=== PATIENT | male | born 1955 | race Caucasian/White ===

== ENCOUNTER 2016-05-19 13:13 | Emergency (ER) | payer BC, OTHER ==
[~2016-05-19] VITALS: Ht 177.8 cm; Wt 84.9 kg
[~2016-05-19 13:13] MED LIST: CIPR1TAB11 PO; LISI-461 PO; MELO15TA4 PO; VARD20TA PO
[2016-05-19 13:19] VITALS: TEMP 36.5; Ht 177.8 cm; Wt 84.9 kg
[2016-05-19] MEDS ORDERED: MELO15TA4 PO (13:36)
[2016-05-19] MEDS ORDERED: GUAISYP4 PO (13:36)
[2016-05-19] MEDS ORDERED: PRED10TA PO (13:36)
[2016-05-19] MEDS ORDERED: DICL1GEL12 TOP (13:36)
[2016-05-19] MEDS ORDERED: AZIT250T PO (13:36)
[2016-05-19] MEDS ORDERED: ALBINS/ INH (13:37)
--- NOTE | 2016-05-19 14:51 | DIAGNOSTIC IMAGING REPORT ---
CHEST 2 VIEWS ROUTINE CLINICAL HISTORY: eval for pnea dyspnea COMPARISON STUDY: 10/21/2012 FINDINGS: The bones soft tissues and hemidiaphragms are normal. The cardiomediastinal silhouette is normal. The lungs are clear. The pulmonary vasculature is normal. IMPRESSION: Negative chest. Electronically signed by: Huber Knight M.D. 05/19/2016 2:50 PM Dictated Date/Time: 05/19/2016 2:49 PM
[2016-05-19] MEDS ORDERED: ALBUT/IPRATROP 3MG/0.5MG NEB 3 ML VIAL INH STA (14:55)
[2016-05-19 15:21] VITALS: O2SAT 97
[2016-05-19 15:22] VITALS: O2SAT 93
[2016-05-19 15:37] LABS: BASO % 0.3 %; BASO ABS # 0.02 K/uL (0-0.2); COMPLETE YES; EOS % 0.1 %; HEMATOCRIT 50.4 % (42-52); IG% 0.6 %; LYMPH % 14.8 %; LYMPH ABS # 1.18 K/uL (1.2-3.4); MEAN CORPUSCULAR HEMOGLOBIN 32.1 pg (25-34); MEAN CORPUSCULAR HGB CONC 35.7 g/dl (32-36); MEAN PLATELET VOLUME 9.4 fL (7.4-10.4); MONO % 9.2 %; PLATELET COUNT 334 K/uL (130-400); WHITE BLOOD COUNT 7.97 K/uL (4.8-10.8)
[2016-05-19 15:48] LABS: INR 0.9 (0.9-1.1); PROTHROMBIN TIME (PATIENT) 10.1 SECONDS (9.0-12.0)
[2016-05-19 15:54] LABS: BUN/CREATININE RATIO 14.1 (10-20); CREATININE 0.8 mg/dl (0.60-1.40); POTASSIUM 3.7 mmol/L (3.5-5.1)
[2016-05-19] MEDS ORDERED: OPTIRAY 320 IV PRN (16:30)
--- NOTE | 2016-05-19 17:00 | DIAGNOSTIC IMAGING REPORT ---
CHEST CTA for PULMONARY ARTERIES CT DOSE: 413.03 mGy.cm HISTORY: Chest pain dyspnea TECHNIQUE: Multiaxial CT images of the chest were performed following the intravenous administration of contrast to evaluate the pulmonary arteries. Maximal intensity projection images were also obtained. COMPARISON STUDY: None. FINDINGS: There is a normal caliber thoracic aorta with no evidence for dissection. There is no evidence for pulmonary embolus. No pleural effusions. No pneumothorax. The liver and spleen are unremarkable. No mediastinal or hilar lymphadenopathy. The central airways are patent. The lungs are clear. Minimal bibasilar atelectasis IMPRESSION: No evidence for pulmonary embolus. Minimal bibasilar atelectasis Electronically signed by: Huber Knight M.D. 05/19/2016 4:58 PM Dictated Date/Time: 05/19/2016 4:54 PM
[2016-05-19 17:19] VITALS: BP 139/102; PULSE 75
--- NOTE | 2016-05-19 21:31 | EMERGENCY ROOM VISIT NOTE ---
History Report prepared by Martin: Mikki Paige Under the Supervision of: Dr. Wan Zapata M.D. First contact with patient: 13:59 Chief Complaint: SHORTNESS OF BREATH Stated Complaint: BREATHING PROBLEM Nursing Triage Summary: pt to the ED with c/o "barking cough" that he felt was getting better after z pack and prednisone and then after returning to normal activities at work he felt like he was getting more SOB and has a hx of asthma and states that he feels like it is similar to that on the right upper side of his chest History of Present Illness The patient is a 60 year old male who presents to the Emergency Room with complaints of persistent shortness of breath that began yesterday. His shortness of breath is worse with exertion. The patient initially developed cold -like symptoms a couple of weeks ago including a cough and congestion. His cough was a barking cough and he would have a right sided chest pain with coughing that felt like a dagger. He also had a fever. Last week he was put on Zithromax, a Prednisone taper, and codeine cough syrup by his PCP. He was also given a steroid inhaler and albuterol nebulizer treatments. Two days ago, he finished the Z-luis f. He was starting to feel better and decided to go back to work yesterday. While at work, he did some walking and noticed that he was feeling short of breath and weak. Last night, the patient noticed some discomfort in the right side of his chest. He has a history of asthma and notes that it feels similar to asthma flare-ups. He also felt like he had to relax and concentrate in order to control his breathing. He has continued to cough and notes that it feels like the cough is coming from the right side of his chest. His cough is exacerbated with any exertion. He notes that the dagger- like chest pain that he had earlier this week has resolved. The patient called his PCP back regarding his symptoms and is now currently on Ceftin. Currently, at rest he does not feel short of breath but feels like he is on the verge of hyperventilating. His fever and congestion have resolved within the past several days. He has had some post-tussive spitting up but otherwise denies vomiting. Denies leg swelling or pain. He does not have a history of blood clots or heart attack. There is not a family history of heart disease. He is not a smoker. Source of History: patient Onset: yesterday Position: other (global - SOB) Timing: other (persistent) Modifying Factors (Worsening): exertion Associated Symptoms: + cough, + weakness Note: Other symptoms: chest discomfort on right Review of Systems See HPI for pertinent positives & negatives. A total of 10 systems reviewed and were otherwise negative. Past Medical & Surgical Medical Problems: (1) Chronic prostatitis (2) Migraine Family History Cancer Hypertension Social History Smoking Status: Never Smoker Marital Status: single Occupation Status: employed Current/Historical Medications Scheduled Azithromycin (Zithromax), 250 MG PO DAILY Diclofenac Sodium (Topical) (Voltaren 1% Top Gel), 4 GM TOP QID Lisinopril (Zestril), 10 MG PO DAILY Prednisone Tab (Prednisone), 10 MG PO UD Scheduled PRN Albuterol Sulf (Proventil 0.083% 2.5MG/3ML), 2.5 MG INH Q4 PRN for Wheezing Guaifenesin/Codeine (Robitussin-Ac Syrup), 1-2 TSP PO HS PRN for COU Meloxicam (Mobic), 15 MG PO DAILY PRN for Pain Allergies Coded Allergies: Penicillins (Verified Allergy, Unknown, UNSURE, 10/21/12) Physical Exam Vital Signs Date Time Temp Pulse Resp B/P Pulse Ox O2 Delivery O2 Flow Rate FiO2 05/19/16 17:19 75 139/102 05/19/16 16:09 82 05/19/16 15:22 72 157/105 93 Room Air 05/19/16 15:21 97 Room Air 05/19/16 13:50 143/104 05/19/16 13:19 36.5 75 16 189/113 97 Room Air Physical Exam Constitutional: Vital signs reviewed. Eyes: Pupils are equal round reactive to light. Conjunctiva are noninjected. ENT: Pharynx is clear without erythema or exudate. Mucous membranes are moist. Neck supple without meningeal signs. Respiratory: Breath sounds are equal bilaterally. Expiratory rhonchi right base. Cardiovascular: Regular rate and rhythm. No rubs or gallops. GI: Soft, nondistended and nontender. Bowel sounds are present. Musculoskeletal: No peripheral edema. No lower extremity tenderness. Integumentary: No cyanosis. Neurological: The patient is awake and alert. No focal deficits. Psychiatric: Normal affect. Medical Decision & Procedures ER Provider Diagnostic Interpretation: X-ray results as stated below per interpretation by me and the radiologist. Other radiology results as stated below per my review and the radiologist's interpretation: CHEST 2 VIEWS ROUTINE CLINICAL HISTORY: eval for pnea dyspnea COMPARISON STUDY: 10/21/2012 FINDINGS: The bones soft tissues and hemidiaphragms are normal. The cardiomediastinal silhouette is normal. The lungs are clear. The pulmonary vasculature is normal. IMPRESSION: Negative chest. Electronically signed by: Huber Knight M.D. 05/19/2016 2:50 PM Dictated Date/Time: 05/19/2016 2:49 PM CHEST CTA for PULMONARY ARTERIES CT DOSE: 413.03 mGy.cm HISTORY: Chest pain dyspnea TECHNIQUE: Multiaxial CT images of the chest were performed following the intravenous administration of contrast to evaluate the pulmonary arteries. Maximal intensity projection images were also obtained. COMPARISON STUDY: None. FINDINGS: There is a normal caliber thoracic aorta with no evidence for dissection. There is no evidence for pulmonary embolus. No pleural effusions. No pneumothorax. The liver and spleen are unremarkable. No mediastinal or hilar lymphadenopathy. The central airways are patent. The lungs are clear. Minimal bibasilar atelectasis IMPRESSION: No evidence for pulmonary embolus. Minimal bibasilar atelectasis Electronically signed by: Huber Knight M.D. 05/19/2016 4:58 PM Dictated Date/Time: 05/19/2016 4:54 PM Laboratory Results 05/19/16 15:12 Red Blood Count 5.60, Mean Corpuscular Volume 90.0, Mean Corpuscular Hemoglobin 32.1, Mean Corpuscular Hemoglobin Concent 35.7, Mean Platelet Volume 9.4, Neutrophils (%) (Auto) 75.0, Lymphocytes (%) (Auto) 14.8, Monocytes (%) (Auto) 9.2, Eosinophils (%) (Auto) 0.1, Basophils (%) (Auto) 0.3, Neutrophils # (Auto) 5.98, Lymphocytes # (Auto) 1.18, Monocytes # (Auto) 0.73, Eosinophils # (Auto) 0.01, Basophils # (Auto) 0.02 05/19/16 15:12 Test 05/19/16 15:12 05/19/16 15:30 White Blood Count 7.97 K/uL (4.8-10.8) Red Blood Count 5.60 M/uL (4.7-6.1) Hemoglobin 18.0 g/dL (14.0-18.0) Hematocrit 50.4 % (42-52) Mean Corpuscular Volume 90.0 fL (80-100) Mean Corpuscular Hemoglobin 32.1 pg (25-34) Mean Corpuscular Hemoglobin Concent 35.7 g/dl (32-36) Platelet Count 334 K/uL (130-400) Mean Platelet Volume 9.4 fL (7.4-10.4) Neutrophils (%) (Auto) 75.0 % Lymphocytes (%) (Auto) 14.8 % Monocytes (%) (Auto) 9.2 % Eosinophils (%) (Auto) 0.1 % Basophils (%) (Auto) 0.3 % Neutrophils # (Auto) 5.98 K/uL (1.4-6.5) Lymphocytes # (Auto) 1.18 K/uL (1.2-3.4) Monocytes # (Auto) 0.73 K/uL (0.11-0.59) Eosinophils # (Auto) 0.01 K/uL (0-0.5) Basophils # (Auto) 0.02 K/uL (0-0.2) RDW Standard Deviation 43.7 fL (36.4-46.3) RDW Coefficient of Variation 13.2 % (11.5-14.5) Immature Granulocyte % (Auto) 0.6 % Immature Granulocyte # (Auto) 0.05 K/uL (0.00-0.02) Prothrombin Time 10.1 SECONDS (9.0-12.0) Prothromb Time International Ratio 0.9 (0.9-1.1) Activated Partial Thromboplast Time 25.1 SECONDS (21.0-31.0) Partial Thromboplastin Ratio 1.0 Anion Gap 12.0 mmol/L (3-11) Est Creatinine Clear Calc Drug Dose 103.9 ml/min Estimated GFR () 114.1 Estimated GFR (Non- 98.5 BUN/Creatinine Ratio 14.1 (10-20) Calcium Level 9.0 mg/dl (8.5-10.1) Bedside D-Dimer > 450 ng/mlFEU (0-450) Bedside Troponin I 0.000 ng/ml (0-0.045) Laboratory results as reviewed by me. Medications Administered Medications (Trade) Dose Ordered Sig/Caroline Route Start Time Stop Time Status Last Admin Dose Admin Albuterol/ Ipratropium (Duoneb) 3 ml NOW STAT INH 05/19/16 14:55 05/19/16 14:57 DC 05/19/16 15:28 3 ML ECG Indication: chest pain (right sided) Rate (beats per minute): 75 Rhythm: normal sinus Findings: no acute ischemic change, no ectopy ED Course 1401: The patient was evaluated in room A9B. A complete history and physical exam was performed. 1455: Ordered DuoNeb 3 ml INH. 1500: I reassessed the patient and talked to him about x-ray results. 1625: I reexamined the patient. He had no wheezing or rhonchi. He says that he feels better after the nebulizer treatment and coughed quite a bit. I talked to him about the elevated d-dimer and we talked about risks of CT scanning. After discussion he agreed to the CT scan to rule out PE. 1705: I reassessed the patient and talked to him about his test results. He agreed with the plan and will be discharged home. Medical Decision This is a 60-year-old male who presents with right-sided chest pain and cold symptoms. Differential diagnosis includes bronchitis, pneumonia, pneumothorax, pulmonary embolism, cardiac. I did perform a limited focused review of portions of the patient's old chart on the electronic medical record. The patient has had no recent pertinent visits to this hospital. I did evaluate the patient as noted above. The patient has had cough and cold symptoms treated with steroids and Zithromax. He is currently on Ceftin. He is here because he had increased shortness of breath as well as right-sided chest pain which she describes as a hollow feeling. On examination he has some expiratory rhonchi at the right base. I did order and personally review the patient's chest x-ray as described above. There is no evidence of pneumonia on x-ray. IV access was established. The patient was placed on a continuous awake overnight monitor. I did order and personally review the 12-lead EKG as described above. There is no evidence of acute ischemic changes. I did order and review the patient's blood work as noted in the electronic medical record. Troponin is negative. D-dimer is elevated. I did treat patient with a DuoNeb. On reexamination the patient is feeling better and has no rhonchi or wheezing. After discussion of risks with the patient, I did order a CT of the chest to evaluate for pulmonary embolism. I did review the images myself as well as the radiology report as described above. The CAT scan was negative for pulmonary embolism or acute process. I did discuss the test results with the patient. He was advised to follow closely with his doctor. He will continue his Ceftin and was given a work note. Impression Primary Impression: Right-sided chest pain Additional Impression: Bronchitis Scribe Attestation The scribe's documentation has been prepared under my direct and personally reviewed by me in its entirety. I confirm that the note above accurately reflects all work, treatment, procedures, and medical decision making performed by me. Departure Information Dispostion Home / Self-Care Referrals Darin Love M.D. (PCP) Patient Instructions ED Chest Pain Atypical Unkn Cause, My [facility] Additional Instructions You have been examined and treated today on an emergency basis only. This is not a substitute for, or an effort to provide, complete comprehensive medical care. It is impossible to recognize and treat all injuries or illnesses in a single emergency department visit. It is therefore important that you follow up closely with your physician. Call as soon as possible for an appointment. Return for worsening symptoms or if you develop fever, vomiting, or any other concerning symptoms. Problem Qualifiers
== END 2016-05-19 17:33 | disposition home or self-care (01) ==
LOC: C.EDB 13:15 → C.EDA 17:33
DX: R07.9 Chest pain, unspecified (principal); J40 Bronchitis, not specified as acute or chronic; J45.909 Unspecified asthma, uncomplicated; N41.1 Chronic prostatitis; G43.909 Migraine, unspecified, not intractable, without status migrainosus; Z82.49 Family history of ischemic heart disease and other diseases of the circulatory system

== ENCOUNTER → 2016-09-06 | Outpatient (CLI) | payer BC ==
[~2016-09-06] MED LIST changes: +ALBINS/ INH; +AZIT250T PO; -CIPR1TAB11 PO; +DICL1GEL12 TOP; +GUAISYP4 PO; +PRED10TA PO; -VARD20TA PO
[2016-09-06 14:03] LABS: CHOLESTEROL/HDL RATIO 4.9
== END | disposition home or self-care (01) ==
LOC: C.LABMFLN 13:59
PROVIDERS: ATTEND Family Medicine
DX: I10 Essential (primary) hypertension (principal); E78.5 Hyperlipidemia, unspecified

== ENCOUNTER → 2017-03-06 | Outpatient (CLI) | payer BC | END | disposition home or self-care (01) | LOC: C.LABSPEC 17:39 | PROVIDERS: ATTEND Physician Assistant | DX: J06.9 Acute upper respiratory infection, unspecified (principal) ==

== ENCOUNTER → 2017-03-10 | Outpatient (CLI) | payer BC ==
[2017-03-10 18:19] LABS: ALT/SGPT 33 U/L (12-78); AST/SGOT 17 U/L (15-37); BLOOD UREA NITROGEN 13 mg/dl (7-18); BUN/CREATININE RATIO 13.6 (10-20); CALCIUM 8.9 mg/dl (8.5-10.1); CARBON DIOXIDE 29 mmol/L (21-32); CHLORIDE 102 mmol/L (98-107); CHOLESTEROL 204 mg/dl (0-200); CREATININE 0.95 mg/dl (0.60-1.40); GLUCOSE 110 mg/dl (70-99); SODIUM 139 mmol/L (136-145)
[2017-03-10 18:24] LABS: CHOLESTEROL/HDL RATIO 3.6; HDL CHOLESTEROL 57 mg/dl; LDL CHOLESTEROL CALCULATED 121 mg/dl; TRIGLYCERIDES 128 mg/dl (0-150); VERY LOW DENSITY LIPOPROT CALC 26 mg/dl
== END | disposition home or self-care (01) ==
LOC: C.LABMFLN 14:23
PROVIDERS: ATTEND Family Medicine
DX: R97.20 Elevated prostate specific antigen [PSA] (principal); I10 Essential (primary) hypertension

== ENCOUNTER → 2017-08-22 | Outpatient (CLI) | payer BC ==
[~2017-08-22] MED LIST changes: +MELO-84 PO; -MELO15TA4 PO
== END | disposition home or self-care (01) ==
LOC: C.PATHSPEC 18:03
PROVIDERS: ATTEND Family Medicine
DX: L98.9 Disorder of the skin and subcutaneous tissue, unspecified (principal); L82.1 Other seborrheic keratosis

== ENCOUNTER 2018-04-29 08:07 | Inpatient (IN) ==
--- NOTE | 2018-04-07 13:51 | Anesthesiology Consultation ---
Date of Service April 07, 2018 Assessment & Plan (1) Encounter for pre-operative examination: Chart Review Chart Review: Acceptable Risk for Surgery and Patient seen in Pre Admission Testing Teaching & Discussion Instructed NPO after midnight before surgery, except medications with 15 cc of water. Medication instructions provided according to the PAT guidelines. History Surgery Operation Date: 04/29/18 13:25 Proposed Procedures p Left Total Shoulder Arthroplasty, Distal Clavicle Excision - Yunier Capmos MD Height/Weight Height: 5 ft 10 in Weight: 91.2 kg Allergies Allergy/AdvReac Type Severity Reaction Status Date / Time Penicillins Allergy Unknown UNSURE Verified 04/06/18 08:17 Medications Home Medications Medication Instructions Recorded Confirmed Last Taken albuterol sulfate 2.5 mg INHALATION QID PRN 04/06/18 04/06/18 Unknown azithromycin 250 mg PO QAM 04/06/18 04/06/18 Unknown codeine-guaifenesin [Guaifenesin 5 ml PO Q6H PRN 04/06/18 04/06/18 Unknown AC] diclofenac sodium 4 g TOPICAL QID PRN 04/06/18 04/06/18 Unknown lisinopril 10 mg PO QAM 04/06/18 04/06/18 Unknown meloxicam 15 mg PO DAILY PRN 04/06/18 04/06/18 Unknown omeprazole 20 mg PO QAM 04/06/18 04/06/18 Unknown prednisone 1 tab PO DIRECTED 04/06/18 04/06/18 Unknown Past Medical History Medical History Bronchitis Currently on Z-pac and prednisone, feels he is improving. Using nebulizer occasionally. GERD (gastroesophageal reflux disease) H/O intrinsic asthma Hypertension Pain in left shoulder current issue Past Family History Family History Mother FH: cancer Past Surgical History Surgical History Hx of hernia repair umbilical, right x2 Hx of tonsillectomy Past Anesthesia History No Hx of Anesthesia Complications and No Family Hx of Anesthesia Complications History of PONV No Motion Sickness Screening History of Motion Sickness: No Social History Smoking Status: Never smoker Do You Dip or Chew Tobacco: No Hx Alcohol Use: Yes alcohol intake frequency: holidays/special occasions only Hx Substance Use: No Exercise / Class Metabolic Activity II 4-5 Yardwork/Stairs/Walk up hill (Normally no CP or SOB with stairs, lately yes 2/2 bronchitis) Review of Systems Pt denies any recent chest pain, shortness of breath, palpitations, fever. + Bronchitis, currently being treated for. Physical Exam Vital Signs BP: 143/93 P: 77 bpm SPO2: 95% RA T: 98.4 F R: 16 ENMT Mouth: + chipped teeth (bottom R molar); no dental restorations and no loose teeth Thyromental Distance: > or= 3.5 Finger Breadths (3.5) Mallampati Class: II Neck normal visual inspection and + limited neck extension (mildly limited extension) Respiratory normal respiratory effort Auscultation: lungs clear to auscultation bilaterally; no rales, no rhonchi and no wheezes Cardiovascular Rate/Rhythm: regular rate and regular rhythm Heart Sounds: no murmur Vessels: no carotid bruit Extremities: no edema Testing Electrocardiogram Date: 04/07/18 Findings: + NSR @ (75) rightward axis. Chest X-Ray Date: 04/07/18 Findings: + NAD Laboratory Results 04/07/18 14:10 04/07/18 14:10 Blood Type O Positive 04/07/18 14:10 Antibody Screen NEGATIVE 04/07/18 14:10 PT 9.9 Seconds (9.0-12.0) 04/07/18 14:10 INR 1.0 (0.9-1.1) 04/07/18 14:10 APTT 24.3 Seconds (21.0-31.0) 04/07/18 14:10 Hemoglobin A1c 5.8 % (4.5-5.6) H 04/07/18 14:10 Urine Color Yellow 04/07/18 Unknown Urine Appearance Clear (Clear) 04/07/18 Unknown Urine pH 5.5 (4.5-7.5) 04/07/18 Unknown Ur Specific [place] 1.016 (1.000-1.030) 04/07/18 Unknown Urine Protein Negative (Negative) 04/07/18 Unknown Urine Glucose (UA) Negative (Negative) 04/07/18 Unknown Urine Ketones Negative (Negative) 04/07/18 Unknown Urine Nitrite Negative (Negative) 04/07/18 Unknown Ur Leukocyte Esterase Negative (Negative) 04/07/18 Unknown *surgeon made aware of elevated WBC count.
--- NOTE | 2018-04-07 14:05 | PAT Medication Instructions ---
Medication Instructions Date of Service April 07, 2018 Home Medications albuterol sulfate 2.5 mg INHALATION QID PRN azithromycin 250 mg PO QAM codeine-guaifenesin 5 ml PO Q6H PRN diclofenac sodium 4 g TOPICAL QID PRN lisinopril 10 mg PO QAM meloxicam 15 mg PO DAILY PRN omeprazole 20 mg PO QAM prednisone 1 tab PO DIRECTED Continue as directed azithromycin 250 mg PO QAM prednisone 1 tab PO DIRECTED ASK your surgeon for instructions meloxicam 15 mg PO DAILY PRN STOP taking 24 hours before surgery diclofenac sodium 4 g TOPICAL QID PRN DO NOT take the morning of surgery codeine-guaifenesin 5 ml PO Q6H PRN lisinopril 10 mg PO QAM Take morning of surgery With a small sip of water, OTHERWISE NOTHING TO EAT OR DRINK AFTER MIDNIGHT: albuterol sulfate 2.5 mg INHALATION QID PRN (if needed) omeprazole 20 mg PO QAM Take evening before surgery albuterol sulfate 2.5 mg INHALATION QID PRN (if needed) codeine-guaifenesin 5 ml PO Q6H PRN (if needed) Other Notes If you have any questions please call us at [phone] or [phone] or [phone] or [phone]
--- NOTE | 2018-04-07 14:33 | XRay Report ---
XR chest Pre-admission PA/Lat HISTORY: 62 years-old Male pat preoperative exam. COMPARISON: CTA chest 05/19/2016, chest radiograph 05/19/2016 TECHNIQUE: PA and lateral views of the chest FINDINGS: Cardiac mediastinal and hilar silhouettes are within normal limits. Slightly increased lucency of the right lung compared the left appears unchanged. No pneumothorax, pleural effusion, focal airspace co nsolidation or overt pulmonary edema. Degenerative changes of the shoulders and spine. IMPRESSION: No acute process. The above report was generated using voice recognition software. It may contain grammatical, syntax o r spelling errors. Electronically signed by: Dax Peterson M.D. 04/07/2018 2:31 PM
[2018-04-07 15:00] LABS: Basophils # (auto) 0.02 K/uL (0-0.2); Basophils % (auto) 0.1 %; Hematocrit (blood only) 53.3 % (42-52); Hemoglobin 18.2 g/dL (14.0-18.0); Immature Granulocytes # (auto) 0.11 K/uL (0.00-0.02); Immature Granulocytes % (auto) 0.7 %; Lymphocytes # (auto) 1.03 K/uL (1.2-3.4); Lymphocytes % (auto) 6.7 %; Mean Corpuscular Hgb Conc 34.1 g/dL (32-36); Mean Corpuscular Volume 92.7 fL (80-100); Mean Platelet Volume 10.2 fL (7.4-10.4); Monocytes # (auto) 0.39 K/uL (0.11-0.59); Monocytes % (auto) 2.5 %; Neutrophils # (auto) 13.81 K/uL (1.4-6.5); Platelet Count 330 K/uL (130-400); RDW Coefficient of Variation 13.4 % (11.5-14.5); RDW Standard Deviation 45.3 fL (36.4-46.3); Red Blood Count 5.75 M/uL (4.7-6.1); White Blood Count 15.36 K/uL (4.8-10.8)
[2018-04-07 15:03] LABS: Appearance Urine Clear (Clear); Bilirubin Urine Negative (Negative); Color Urine Yellow; Glucose Urine UA Negative (Negative); Ketones Urine Negative (Negative); Leukocyte Esterase Urine Negative (Negative); Nitrite Urine Negative (Negative); Protein Urine Negative (Negative); Specific Gravity Urine 1.016 (1.000-1.030); Urobilinogen Urine Negative (Negative); pH Urine 5.5 (4.5-7.5)
[2018-04-07 15:15] LABS: Partial Thromboplastin Ratio 0.9; Partial Thromboplastin Time 24.3 Seconds (21.0-31.0); Prothrombin Time 9.9 Seconds (9.0-12.0)
[2018-04-07 15:55] LABS: Albumin Level 4.2 gm/dl (3.4-5.0); BUN Creatinine Ratio 14.3 (10-20); Calcium 9.5 mg/dl (8.5-10.1); Creatinine Clr Calc Pharmacy 95.9 ml/min; Est GFR (African American) 103.1; Est GFR (Non-African American) 88.9; Potassium 4.3 mmol/L (3.5-5.1)
[2018-04-08 06:20] LABS: Estimated Average Glucose 120 mg/dl
--- NOTE | 2018-04-28 22:55 | History and Physical Report ---
DATE OF ADMISSION: 04/29/2018 CHIEF COMPLAINT: Chronic left shoulder pain. HISTORY OF PRESENT ILLNESS: This is a 62-year-old male patient of Dr. Campos'vikas complaining of chronic left shoulder pain, longstanding, now progressively getting worse. The patient has failed conservative treatment. The patient has been diagnosed with end-stage osteoarthritis in his left shoulder joint according to radiographic and clinical exams. He also has arthritis of his AC joint and impingement syndrome. The patient has elected to proceed with a left total shoulder arthroplasty, distal clavicle excision, and subacromial decompression. PAST MEDICAL HISTORY: Hypertension, acid reflux. SOCIAL HISTORY: Nonsmoker, occasional drinker. PAST SURGICAL HISTORY: Hernia x2 and tonsillectomy. FAMILY HISTORY: Noncontributory. REVIEW OF SYSTEMS: Chronic left shoulder pain and weakness. Otherwise, denies any shortness of breath, chest pain, nausea, vomiting, or any other joint complaints. MEDICATIONS: Lisinopril 10 mg daily, Mobic 15 mg daily, omeprazole daily, oxycodone 5 mg as needed. ALLERGIES: PENICILLIN. PHYSICAL EXAMINATION: GENERAL: Well-developed, well-nourished 62-year-old male in no acute distress. He is alert and oriented x3 and pleasant. HEENT: Normocephalic, atraumatic. Extraocular motions are intact. Pupils are equal and reactive to light. HEART: Regular rate and rhythm, no murmurs appreciated. LUNGS: Clear. ABDOMEN: Soft, nontender, bowel sounds present. EXTREMITIES: Left shoulder reveals full range of motion with pain and crepitation. He has 5/5 strength with pain and crepitation. NEUROLOGIC: Neurovascularly, he is intact in his left upper extremity. DIAGNOSES: Left shoulder end-stage osteoarthritis, hypertension, acid reflux. PLAN: The patient was advised of his diagnosis. Indications, risks, benefits, postop course have all been reviewed. The patient wished to proceed with a left total shoulder arthroplasty, distal clavicle excision, and subacromial decompression. Necessary consent forms, preoperative testing, and clearances will be obtained.
[~2018-04-29 08:07] MED LIST changes: +ACETAMINOPHEN 500 MG TAB PO SCH; -ALBINS/ INH; -AZIT250T PO; +BUPIVACAINE/EPINEPHRINE 0.25% 1:200,000 30 ML VIAL ONE; +CeleBREX 200 MG CAP PO SCH; +DEXAMETHASONE SOD INJ 4 MG/ML VIAL ONE; -DICL1GEL12 TOP; +FAMOTIDINE 20 MG TAB PO SCH; +GABAPENTIN 300 MG x 2 PO SCH; -GUAISYP4 PO; +LACTATED RINGER'S 1,000 ML IV SCH; -LISI-461 PO; -MELO-84 PO; +METOCLOPRAMIDE HCL 10 MG TABLET PO SCH; -PRED10TA PO; +VANCOMYCIN HCL 1,500 MG in SODIUM CHLORIDE 0.9% 500 ML IV SCH; +dexAMETHasone 4 MG TAB PO SCH
[2018-04-29] MEDS ORDERED: MIDAZOLAM HCL 1 MG/ML 2ML VIAL ONE (08:11)
[2018-04-29] MEDS ORDERED: fentaNYL citrate 100 MCG/2 ML VIAL ONE ×2 (08:11→13:29)
[2018-04-29] MEDS ORDERED: PROPOFOL IV EMULSION 10 MG/ML 20 ML VIAL IV ONE (08:27)
[2018-04-29] MEDS ORDERED: ROCURONIUM BROMIDE 10 MG/ML 5 ML VIAL ONE ×2 (08:27→12:22)
[2018-04-29] MEDS ORDERED: LIDOCAINE HCL 2% 2 ML VIAL/AMP(20MG/ML) INFIL ONE (08:27)
[2018-04-29] MEDS ORDERED: ONDANSETRON INJ 2 MG/ML 2 ML VIAL ONE (08:27)
--- NOTE | 2018-04-29 08:47 | History & Physical Bridge Note ---
Date of Service April 29, 2018 History & Physical Bridge Note I have examined the patient, reviewed the History & Physical and in the interval since the performance of the History & Physical I have noted the following changes of clinical significance: no changes noted
[2018-04-29] MEDS ORDERED: SODIUM CHLORIDE 0.9% INJ 10 ML VIAL ONE ×2 (09:02→09:04)
[2018-04-29] MEDS ORDERED: BACITRACIN INJ 50,000 UNIT VIAL ONE (09:23)
[2018-04-29] MEDS ORDERED: EpINEphrine HCL INJ 1 MG/ML 1ML SYRINGE ONE (09:24)
[2018-04-29] MEDS ORDERED: ATROPINE SULFATE 0.1 MG/ML 10ML SYR IV PRN (10:53)
[2018-04-29] MEDS ORDERED: fentaNYL citrate 100 MCG/2 ML VIAL IV PRN (10:53)
[2018-04-29] MEDS ORDERED: ePHEDrine sulfate 50 MG/ML AMP IV PRN (10:53)
[2018-04-29] MEDS ORDERED: ONDANSETRON INJ 2 MG/ML 2 ML VIAL IV PRN ×2 (10:53→15:54)
[2018-04-29] MEDS ORDERED: EpINEphrine HCL INJ 1 MG/ML 1ML SYRINGE IV SCH ×2 (12:00)
[2018-04-29] MEDS ORDERED: GLYCOPYRROLATE 0.2 MG/ML VIAL ONE (12:23)
--- NOTE | 2018-04-29 14:10 | Post Operative Brief Note ---
Immediate Post Op Note v1 Date of Surgery April 29, 2018 Pre & Post Diagnosis Operation Date: 04/29/18 10:50 Pre-Op Diagnosis: Left Shoulder Degenerative Joint Disease glenohumeral and acromioclavicular joint with subacromial impingement Post-Op Diagnosis: Left Shoulder Degenerative Joint Disease glenohumeral and acromioclavicular joint with subacromial impingement and biceps tenosynovitis tendinopathy, intact rotator cuff. Procedure Operation Date: 04/29/18 10:50 Actual Procedures p Left Total Shoulder Arthroplasty, Subacromial Decompression, Distal Clavicle Excision and biceps tenodesis (Left) - Yunier Campos MD Surgeon Yunier Campos MD Manual Machinist Huber BOYRE Estimated Blood Loss 100 Findings Consistent with Post-Op Diagnosis Specimens Humeral head and distal clavicle Drains Hemovac Drain Anesthesia Type General Regional Complications none Disposition Accompanied Patient To Recovery: No Disposition: Recovery Room Overlapping Procedure I was present for: the critical portions of procedure.
--- NOTE | 2018-04-29 14:48 | XRay Report ---
XR shoulder LT min 2V routine CLINICAL HISTORY: Post shoulder surgery COMPARISON: None. DISCUSSION: There are postsurgical changes of a total left shoulder arthroplasty. There is evidence f or a distal left clavicular osteotomy. There is no dislocation. There are overlying skin nereida and surgical drains. There is aortic the soft tissues consistent with recent surgery. There are nonspecif ic airspace opacities at the left lung base. IMPRESSION: Postsurgical changes of a total left shoulder arthroplasty. No evidence of dislocation. Electronically signed by: Carlos Hernandez M.D. 04/29/2018 2:47 PM
--- NOTE | 2018-04-29 15:40 | Anesthesiology Progress Note ---
Date of Service April 29, 2018 Anesthesia Post Procedure Vital Signs Vital Signs: Temp Pulse Pulse Resp BP Pulse Ox 04/29/18 15:35 86 14 131/86 95 04/29/18 15:25 86 12 141/87 H 95 04/29/18 15:15 36.8 C 83 14 133/91 95 04/29/18 15:05 83 21 131/89 95 04/29/18 14:55 85 17 138/93 96 04/29/18 14:45 83 17 137/91 93 04/29/18 14:35 84 12 142/91 H 94 04/29/18 14:27 36.6 C 84 18 129/92 94 04/29/18 08:50 36.5 C 79 16 154/95 H 98 Pain Intensity Left Shoulder: Pain Intensity: 2 Notes Mental Status: alert / awake / arousable Patient Amnestic to Procedure: Yes Nausea / Vomiting: adequately controlled Pain: adequately controlled Airway Patency, RR, SpO2: stable & adequate BP & HR: stable & adequate Hydration State: stable & adequate Anesthetic Complications: no major complications apparent Notes: Block working well in pacu. He has some mild to moderate pain in a T2 dermatome, but it is very well manageable with low dose narcotic.
[2018-04-29] MEDS ORDERED: NALOXONE HCL 0.4 MG/1 ML VIAL/CARP IV PRN (15:54)
[2018-04-29] MEDS ORDERED: DICLOFENAC SOD 1% GEL 100 GM TUBE EXT PRN (15:54)
[2018-04-29] MEDS ORDERED: ALBUTEROL 0.083% NEBU SOLN 3 ML VIAL INH PRN (15:54)
[2018-04-29] MEDS ORDERED: MAGNESIUM HYDROXIDE SUSP 30 ML UDC PO PRN (15:54)
[2018-04-29] MEDS ORDERED: ZOLPIDEM TARTRATE 5 MG TAB PO PRN (15:54)
[2018-04-29] MEDS ORDERED: VANCOMYCIN HCL 1,000 MG in SODIUM CHLORIDE 0.9% 250 ML IV SCH (15:54)
[2018-04-29] MEDS ORDERED: BISACODYL 10 MG SUPP PR PRN (15:54)
--- NOTE | 2018-04-29 16:41 | Internal Medicine Consult Note ---
Date of Consultation April 29, 2018 Assessment & Plan (1) Hypertension: continue lisinopril (2) GERD (gastroesophageal reflux disease): omeprazole continues (3) Asthma: on symbicort recently for bronchial asthma (4) DVT prophylaxis: early ambulation (5) Status post replacement of left shoulder joint: History of Present Illness Attending Physician: Yunier Campos MD History of Present Illness Patient underwent left shoulder replacement today. He otherwise has no complaints or problems. He expects to go home and do rehab in the future I personally reviewed his home medications with him including his Symbicort which was not the found on his med reconciliation sheet Allergies Allergy/AdvReac Type Severity Reaction Status Date / Time Penicillins Allergy Unknown UNSURE Verified 04/29/18 08:36 Home Medications Home Medications Medication Instructions Recorded Confirmed Type albuterol sulfate 2.5 mg INHALATION QID PRN 04/06/18 04/29/18 History diclofenac sodium 4 g TOPICAL QID PRN 04/06/18 04/29/18 History lisinopril 10 mg PO QAM 04/06/18 04/29/18 History meloxicam 15 mg PO DAILY PRN 04/06/18 04/29/18 History omeprazole 20 mg PO QAM 04/06/18 04/29/18 History Symbicort 04/29/18 History Patient History Family History Mother FH: cancer Social History marital status: Life Partner Current Living Situation: Significant Other Other Information That Helps Us Care for You: No Feels Safe at Home: Yes Safety Concerns: Feels Safe At This Time Smoking Status: Never smoker Do You Dip or Chew Tobacco: No Hx Alcohol Use: Yes Alcohol Intake Frequency: holidays/special occasions only Hx Substance Use: No Beliefs That Will Affect Care: None Communication Ability: Effective Review of Systems ROS: well nourished well developed. No double vision blurry vision No problems with speech or swallowing No palpitations, chest pain or pressure No Wheezing or breathing issues No abdominal pain nausea vomiting diarrhea changes in appetite or weight No burning urine urine frequency or changes in color Nerve block still in place he has no pain in his shoulder No skin rashes or oral lesions No unusual bruising or bleeding No focused back pain or numbness or loss of strength No changes in memory or confusion Physical Exam 2 Vital Signs (Past 24 Hours): Last Vital Signs Temp 37.1 C 04/29/18 16:15 Pulse 89 04/29/18 16:15 Resp 16 04/29/18 16:15 BP 136/83 04/29/18 16:15 Pulse Ox 97 04/29/18 16:15 The patient appeared well nourished and normally developed. Vital signs as documented. Head exam is unremarkable. No scleral icterus or corneal arcus noted Neck is without jugular venous distension, thyromegaly, or lymphademopathy Lungs are clear to auscultation and percussion. Cardiac exam reveals Rhythm is regular. First and second heart sounds normal. Abdominal exam reveals normal bowel sounds, no masses, no organomegaly Extremities are nonedematous and both pedal pulses are normal. Left shoulder has a dressing in place his left hand has good capillary refill and is warm with good pulses Neurologic exam is A&Ox3, his deficits are postsurgical at this point in time Skin is warm Dry without bruises or lesions with the exception of the surgical site which cannot be visualized
[2018-04-29] MEDS: LISINOPRIL 10 MG TAB PO SCH (18:38)
[2018-04-29] MEDS: D5W AND 1/2NSS + 20MEQ KCL 20 MEQ/1,000 ML BAG IV SCH (18:39)
--- NOTE | 2018-04-29 19:09 | Operative Report ---
DATE OF OPERATION: 04/29/2018 INDICATION FOR PROCEDURE: A 62-year-old male presents with left shoulder pain, failed conservative management. He has worked up with the x-rays and MRI demonstrating that he has end-stage glenohumeral osteoarthritis. He has a P2 type glenoid with more eccentric wear posteriorly on the glenoid. He has large inferior osteophytes consistent with osteoarthritis. He also has hypertrophic AC joint arthritis, also grade 4 DJD bone on bone with a bony ossicle in AC joint and some anterior inferior acromial spurs causing impingement. Rotator cuff is intact. PREOPERATIVE DIAGNOSES: 1. Left shoulder osteoarthritis, glenohumeral joint. 2. Osteoarthritis, acromioclavicular joint. 3. Subacromial impingement. POSTOPERATIVE DIAGNOSIS: 1. Left shoulder osteoarthritis, glenohumeral joint. 2. Osteoarthritis, acromioclavicular joint. 3. Subacromial impingement. 4. Biceps tenosynovitis. 5. Biceps tendinopathy. PROCEDURE: Left total shoulder arthroplasty, open subacromial decompression, open distal clavicle excision, and biceps tenodesis. SURGEON: Yunier Campos MD. GOLD LEAF LAYER: Huber Bass PA-C. ANESTHESIA: Regional block and general. OPERATIVE PROCEDURE: Patient was taken to the operating room, anesthetized under regional block and general anesthetic. He was placed on the operating room table on a 40 degree beach chair position. A towel was placed on the medial border of his left scapula. He was translated to the left side of his bed so that his left shoulder could be manipulated off the bed as necessary. His head was placed on a foam headrest. He had protective eyewear placed. He had KEVYN and SCDs. Left shoulder exam demonstrated that he had 155 degrees of forward elevation, 110 degrees of abduction, external rotation to about 45 degrees. His left shoulder was then sterilely prepped and draped in the usual sterile fashion using ChloraPrep. He had preoperative vancomycin for antibiotic. Attention was first taken to the glenohumeral joint. A longitudinal incision was made in the deltopectoral interval. Skin was incised sharply. Subcutaneous flaps were elevated. The cephalic vein was dissected out and retracted laterally over the deltoid. Some crossing vessels were ligated and tied off with silk ties. The deltoid was retracted laterally. The pectoralis was retracted medially. The upper centimeter of the pectoralis was released for inferior exposure. There was marked biceps tenosynovitis extending into the bicipital groove down to the pectoralis tendon. The tenosynovectomy was performed around the biceps, and the biceps was tenodesed to the pectoralis tendon using [id number] #2 FiberWire sutures, and the proximal biceps was resected. The rotator cuff was noted to be intact. There was some subacromial bursitis which was resected. The circumflex vessels were tied off with silk ties and divided laterally. The muscle subscapularis was split just at the level of the circumflex vessels, divided down to visualize capsule well, and then reflected the fibers of the inferior capsule and used the Kitner elevator to do blunt dissection underlying the capsule, and then we identified the axillary nerve with tug test, and a blunt Hohmann retractor was placed between the axillary nerve and the capsule. The rotator interval then was opened up and extended down to the glenoid. Subscapularis then was taken down with a transtendinous incision leaving a cuff of tissue for repair on the lesser tuberosity. A traction suture using #1 Vicryl was placed into the free end of the subscapularis. The capsule then was released under direct visualization down to the glenoid anteriorly. The capsule then was released off the anterior labrum, and the rotator interval was released down to meet that creating a 360 degree release of subscapularis. The Bankart retractor was placed anteriorly. A Fukuda retractor was placed into the joint, and humeral head was retracted posteriorly. Remainder of the biceps tendon and labrum resected. The glenoid was noted to have some articular cartilage in a half marc shape along the anterior aspect of the glenoid. The posterior glenoid was exposed bone and some mild posterior wear with a P2 type wear pattern but mild. The capsular release was then performed anterior inferiorly and posterior inferiorly using both electrocautery on bone and a Heard elevator. The humerus then was re-exposed. All osteophytes removed around the humerus. There were large inferior humeral osteophytes that we previously resected prior to the glenoid exposure. These were removed with an artist chisel and a rongeur. At this time, an oscillating saw was used to make an anatomic humeral head cut resecting the damaged humeral head. The humeral head was eburnated bone articular surface. After the humerus was cut, we sized the humeral head for a 50 mm diameter. The cancellous bone then was tested with a push test, and there was a solid cancellous bone, so we could go ahead with the Simpliciti Tornier total shoulder arthroplasty system, which was a stemless system. Guide was placed over the humeral cut. A central drill pin was placed. The drill for the blade punch then was placed, and then the Nirali blade was impacted but not fully seated just a few millimeters proud, and then we placed on the trial head and impacted in position so that the punch was placed into anatomic position in terms of depth. A trial head then was removed, and then we went ahead with a cup protector and then went ahead and retracted the humeral head posteriorly to the glenoid so that we could go ahead and prepare the glenoid for the glenoid component. I used the Perform glenoid components. We looked at the curvature and assessed that and decided we would use the M35 glenoid Perform implant. The guide for the central hole was placed. We marked that and then placed the central drill hole. We then used the reamers. We had to eccentrically ream the anterior glenoid down to re-change the version of the glenoid into some more anteversion to make them more anatomic because of posterior loss of bone. That was accomplished satisfactorily. The central drill hole was widened, and then we placed the guide for the drilled peripheral pegs. Trial reduction was stable. I then set that out and irrigated out copiously, packed the drill holes with epinephrine soaked sponges. We then used Palacos G cement to cement the component in place. We then cemented the glenoid component into place cementing the peripheral holes. Central peg was press fit. Back of the component was cemented. All excess cement was cleared. When the cement cured, after copious irrigation with antibiotic solution with bacitracin, went ahead and did trial reduction, which was satisfactory with the 50 x 19 trial head. We then removed the trials and then went ahead and placed drill holes through the hard bone in the bicipital groove area lateral to the lesser tuberosity and placed transosseous #5 FiberWire sutures for repair of the subscapularis. We then went ahead and irrigated this out copiously. I then placed the Simpliciti nucleus size 3, which was impacted into position, left somewhat proud so that we could place on the Simpliciti humeral head, which was cobalt chromium 50 x 19 mm head. We then impacted these on together, that we seat the Rosado taper of the head into the nucleus, and the nucleus fully seated down to the bone though we had excellent fit. We tested the head, it was stable. I did trial reduction. The humerus was stable through full range of motion. I then went ahead and repaired the subscapularis with the #5 FiberWire sutures using Horace-Mark suture technique. We did lateral row fixation and repaired the rotator interval with [id number]-[id number] #2 FiberWire sutures. We repaired the pectoralis tendon with ijikzo-cs-avgom #2 FiberWire sutures reinforcing the biceps tenodesis passing sutures back to the biceps tendon as well. Took through range of motion, there was 155 degrees forward elevation, 100 degrees of abduction, and external rotation of 40 degrees without any tension on the repair. The wound was then irrigated copiously. I then went ahead and made a transverse incision over the AC joint and anterior acromion. Skin incised sharply, subcutaneous flaps were elevated. Incision was carried down reflecting the fascia off the distal clavicle exposing 1 cm distal clavicle and reflected off the anterior acromion to expose the anterior acromial spur. A distal clavicle 1 cm was resected with an oscillating saw. The Tiemann rasp was placed underneath the acromion and then we used an oscillating saw to resect the spur on the anterior acromion, smoothed out the acromion with a Tiemann rasp, removed some more subacromial bursa, irrigated this out copiously. I then repaired the deltoid first by placing a rip-stop #2 FiberWire suture along the edge of the deltoid through the deltoid tissue. Then we placed interrupted #2 FiberWire sutures repairing the trapezius, deltoid fascia, and the transosseous sutures through the anterior acromion. I used #2 FiberWire. The repair was secured through range of motion of shoulder. Then, after irrigation the subcutaneous tissue closed with inverted 2-0 Vicryl, skin was closed with nereida over the distal clavicle resection site. After copious irrigation of the anterior incision, the 2 drains were brought out laterally, 1 placed deep to the deltoid, one placed deep to the conjoined tendon, and then the deltopectoral muscles were approximated with uqyyzo-qs-attay #1 Vicryl suture. The subcutaneous was closed with interrupted 2-0 Vicryl sutures, skin closed with nereida. Sterile dressings applied and a sling immobilizer. The patient had 100 mL of blood loss and tolerated the procedure well. ROSALIND Leo is my medical office assistant. He functioned as medical office assistant with arm positioning, soft tissue retraction, instrument management as necessary. He performed subcutaneous and skin closures and will participate in postoperative care of patient. I attest to the content of the Intraoperative Record and any orders documented therein. Any exception s are noted below.
[2018-04-29] MEDS: DOCUSATE SODIUM 100 MG CAP PO SCH (20:42)
[2018-04-29] MEDS: ACETAMINOPHEN 500 MG TAB PO SCH (20:42)
[2018-04-29] MEDS: BUDESONIDE/FORMOTEROL FUMARATE 80/4.5 60 PUFFS/INHALER INH SCH (20:42)
[2018-04-29] MEDS ORDERED: VANCOMYCIN HCL 1,500 MG in SODIUM CHLORIDE 0.9% 500 ML IV ONE (21:00)
[2018-04-30] MEDS: D5W AND 1/2NSS + 20MEQ KCL 20 MEQ/1,000 ML BAG IV SCH (04:53)
[2018-04-30] MEDS: ACETAMINOPHEN 500 MG TAB PO SCH ×3 (06:04→20:45)
[2018-04-30 06:06] LABS: Basophils # (auto) 0.02 K/uL (0-0.2); Basophils % (auto) 0.1 %; Eosinophils # (auto) 0.01 K/uL (0-0.5); Eosinophils % (auto) 0.1 %; Hemoglobin 13.7 g/dL (14.0-18.0); Immature Granulocytes # (auto) 0.06 K/uL (0.00-0.02); Immature Granulocytes % (auto) 0.3 %; Lymphocytes # (auto) 0.86 K/uL (1.2-3.4); Lymphocytes % (auto) 4.6 %; Mean Corpuscular Hgb Conc 33.4 g/dL (32-36); Mean Corpuscular Volume 93.8 fL (80-100); Mean Platelet Volume 9.7 fL (7.4-10.4); Monocytes # (auto) 1.48 K/uL (0.11-0.59); Monocytes % (auto) 7.9 %; Neutrophils # (auto) 16.36 K/uL (1.4-6.5); Platelet Count 271 K/uL (130-400); Red Blood Count 4.37 M/uL (4.7-6.1); White Blood Count 18.79 K/uL (4.8-10.8)
[2018-04-30 06:37] LABS: BUN Creatinine Ratio 12.8 (10-20); Calcium 8.2 mg/dl (8.5-10.1); Creatinine Clr Calc Pharmacy 90.5 ml/min; Est GFR (African American) 96.7; Est GFR (Non-African American) 83.5
[2018-04-30] MEDS: OXYCODONE HCL IR 5 MG TAB (IMMEDIATE RELEASE) PO PRN ×5 (06:54→20:26)
[2018-04-30] MEDS ORDERED: SODIUM CHLORIDE 0.9% 1000ML 1,000 ML IV SCH (07:30)
--- NOTE | 2018-04-30 07:59 | Anesthesiology Progress Note ---
Date of Service April 30, 2018 Anesthesia Post Procedure Vital Signs Vital Signs: Temp Pulse Pulse Resp BP Pulse Ox 04/30/18 07:31 36.8 C 78 18 135/76 95 04/30/18 03:14 36.7 C 85 16 112/71 91 04/29/18 22:48 36.6 C 94 H 16 102/64 94 04/29/18 21:37 74 16 95 04/29/18 18:40 36.6 C 100 H 16 131/74 93 04/29/18 17:47 36.7 C 96 H 18 133/84 91 04/29/18 16:48 36.6 C 94 H 18 136/86 96 04/29/18 16:15 37.1 C 89 16 136/83 97 04/29/18 15:54 36.9 C 87 16 126/82 96 04/29/18 15:35 86 14 131/86 95 04/29/18 15:25 86 12 141/87 H 95 04/29/18 15:15 36.8 C 83 14 133/91 95 04/29/18 15:05 83 21 131/89 95 04/29/18 14:55 85 17 138/93 96 04/29/18 14:45 83 17 137/91 93 04/29/18 14:35 84 12 142/91 H 94 04/29/18 14:27 36.6 C 84 18 129/92 94 04/29/18 08:50 36.5 C 79 16 154/95 H 98 Notes Mental Status: alert / awake / arousable and participated in evaluation Patient Amnestic to Procedure: Yes Nausea / Vomiting: adequately controlled Pain: adequately controlled Airway Patency, RR, SpO2: stable & adequate BP & HR: stable & adequate Hydration State: stable & adequate Anesthetic Complications: no major complications apparent and Pt Satisfied with anesthetic care
[2018-04-30] MEDS: DOCUSATE SODIUM 100 MG CAP PO SCH ×2 (08:51→20:08)
[2018-04-30] MEDS: PANTOprazole 40 MG TAB PO SCH (08:52)
[2018-04-30] MEDS: MULTIVITAMIN TAB PO SCH (08:52)
[2018-04-30] MEDS: LISINOPRIL 10 MG TAB PO SCH (08:52)
[2018-04-30] MEDS: BUDESONIDE/FORMOTEROL FUMARATE 80/4.5 60 PUFFS/INHALER INH SCH ×2 (08:52→20:08)
--- NOTE | 2018-04-30 09:52 | Orthopedic Progress Note ---
Date of Service April 30, 2018 Assessment & Plan (1) Status post replacement of left shoulder joint: POD #2, Left shoulder TSA, Biceps tenodesis, open DCE, SAD PT/ OT D/C planning- Home w OPPT As per medicne Subjective POD #1, doing well, denies sob, cp, n/v, states pain is controlled well. Physical Exam 2 Vital Signs (Past 24 Hours): Last Vital Signs Temp 36.8 C 04/30/18 07:31 Pulse 78 04/30/18 07:31 Resp 18 04/30/18 07:31 BP 135/76 04/30/18 07:31 Pulse Ox 95 04/30/18 07:31 Physical Exam: Left shoulder dressings c/d/i, no drainage, fingers mobile, sling in tact, A&Ox3.
[2018-04-30] MEDS ORDERED: POLYETHYLENE (MIRALAX) 17 GM PACK PO ONE (09:59)
[2018-04-30] MEDS: MoRPHine SULFATE 2 MG/ML CARP IV PRN ×3 (15:42→21:48)
--- NOTE | 2018-04-30 17:32 | Family Medicine Progress Note ---
Date of Service April 30, 2018 Assessment & Plan (1) Status post replacement of left shoulder joint: S/p L shoulder joint replacement, 04/29 Continue tylenol 1000mg Q8H, PRN morphine and roxicodone Constipation 2/2 opiate/pain medication use in the setting of L shoulder surgery Given miralax 34g x 1 Colace 100mg BID Hypertension: continue lisinopril GERD (gastroesophageal reflux disease): omeprazole continues Asthma: on symbicort for bronchial asthma DVT prophylaxis: early ambulation Diet: Code: Full Dispo: pending clinical improvement home with PT/OT (5) Status post replacement of left shoulder joint: (2) DVT prophylaxis: (3) Asthma: Supervising Physician Co-Signing Physician Notes I personally examined the patient and verified all zuniga points of history and exam, discussed case, and agree with decision making with Dr Noonan. He has some shoulder pain, it is getting worse, but he is reticent because he is worried about constipation. He does feel like he is going to have a bowel movement but is a bit bloated and uncomfortable. No other acute complaints. Vitals noted, in general he is awake alert appears a bit uncomfortable but otherwise in no distress. HEENT normocephalic atraumatic mucous membranes are moist. Abdomen is only mildly distended at worst. Shoulder painencouraged more liberal use of his pain meds ConstipationMiraLAX Otherwise as above Subjective This AM pt reports 4/10 L shoulder pain. Pt was avoiding pain medications and pain worsened. Also felt bloated and constipated and had some abdominal cramps. Otherwise denied any f/c, NICHOALS/dizziness, sob, cp, n/v, diarrhea, dysuria. Physical Exam 2 Vital Signs (Past 24 Hours): Last Vital Signs Temp 37.2 C 04/30/18 15:09 Pulse 77 04/30/18 15:09 Resp 20 04/30/18 15:09 BP 134/87 04/30/18 15:09 Pulse Ox 94 04/30/18 15:09 Physical Exam: General: pleasant, cooperative, in NAD Neuro: alert and oriented x 4 CV: RRR, no m/r/g Pulm: CTAB, equal breath sounds bilaterally Abdomen: +BS, NTTP in all quadrants, distended Extremities: L shoulder dressing C/D/I, warm to touch proximally and distally, good radial pulse, able to move fingers, intact sensation; no LE pitting edema, no calf tenderness to palpation Results & Data Laboratory Results Abnormal lab results 04/30/18 04/30/18 Range/Units 05:22 05:22 WBC 18.79 H (4.8-10.8) K/uL RBC 4.37 L (4.7-6.1) M/uL Hgb 13.7 L (14.0-18.0) g/dL Hct 41.0 L (42-52) % Immature Gran # (Auto) 0.06 H (0.00-0.02) K/uL Neut # (Auto) 16.36 H (1.4-6.5) K/uL Lymph # (Auto) 0.86 L (1.2-3.4) K/uL Sully # (Auto) 1.48 H (0.11-0.59) K/uL Chloride 108 H (98-107) mmol/L Glucose 158 H (70-99) mg/dl Calcium 8.2 L (8.5-10.1) mg/dl Medications Administered Current Inpatient Medications Acetaminophen (Tylenol) 1,000 mg PO Q8H MARTIN Stop: 05/29/18 21:59 Last Admin: 04/30/18 14:15 Dose: 1,000 mg Albuterol (Ventolin 0.083% 2.5mg/3ml) 2.5 mg INH QID PRN PRN Reason: cough and bronchitis Stop: 05/29/18 15:53 Last Admin: 04/29/18 21:34 Dose: 2.5 mg Bisacodyl (Dulcolax) 10 mg CA DAILY PRN PRN Reason: Constipation Stop: 05/29/18 15:53 Budesonide/Formoterol Fumarate (Symbicort 80mcg/4.5mcg) 2 puffs INH BID MARTIN Stop: 05/29/18 20:59 Last Admin: 04/30/18 08:52 Dose: 2 puffs Diclofenac Sodium (Voltaren 1% Top) 1 appln EXT QID PRN PRN Reason: Pain Stop: 05/29/18 15:53 Diphenhydramine HCl (Benadryl) 25 mg PO Q8H PRN PRN Reason: pruritis Stop: 05/29/18 15:53 Docusate Sodium (Colace) 100 mg PO BID [facility] Stop: 05/29/18 20:59 Last Admin: 04/30/18 08:51 Dose: 100 mg [facility]op[facility]est[facility]) [facility] [place] Stop: 05/29/18 16:44 Last Admin: 04/30/18 08:52 Dose: 10 mg Magnesium Hydroxide (Milk Of Magnesia) 30 ml PO Q6H PRN PRN Reason: Constipation Stop: 05/29/18 15:53 Last Admin: 04/30/18 07:34 Dose: 30 ml Morphine Sulfate (Morphine Sulfate) 2 - 4 mg IV Q3H PRN PRN Reason: Pain Stop: 05/13/18 15:53 Last Admin: 04/30/18 15:42 Dose: 4 mg Multivitamins (Multivitamin Tab) 1 [facility] [place] Stop: 05/30/18 08:59 Last Admin: 04/30/18 08:52 Dose: 1 tab Naloxone HCl (Narcan) 0.1 mg IV Q2M PRN PRN Reason: opiate reversal Stop: 05/29/18 15:53 Ondansetron HCl (Zofran) 4 mg IV Q6H PRN PRN Reason: Nausea And Vomiting Stop: 05/29/18 15:53 Oxycodone HCl (Roxicodone Immediate Rel) 5 - 10 mg PO Q4H PRN PRN Reason: Pain Stop: 05/13/18 15:53 Last Admin: 04/30/18 16:29 Dose: 10 mg Pantoprazole Sodium (Protonix) 40 [facility] [place] Stop: 05/30/18 08:59 Last Admin: 04/30/18 08:52 Dose: 40 mg Zolpidem Tartrate (Ambien) 5 mg PO HS PRN PRN Reason: Sleep Stop: 05/29/18 15:53
[2018-05-01] MEDS: OXYCODONE HCL IR 5 MG TAB (IMMEDIATE RELEASE) PO PRN ×5 (00:54→20:48)
[2018-05-01] MEDS: MoRPHine SULFATE 2 MG/ML CARP IV PRN ×3 (03:42→23:55)
[2018-05-01 05:53] LABS: Basophils # (auto) 0.03 K/uL (0-0.2); Basophils % (auto) 0.2 %; Eosinophils # (auto) 0.06 K/uL (0-0.5); Eosinophils % (auto) 0.3 %; Hematocrit (blood only) 44.1 % (42-52); Hemoglobin 14.5 g/dL (14.0-18.0); Immature Granulocytes # (auto) 0.06 K/uL (0.00-0.02); Immature Granulocytes % (auto) 0.3 %; Lymphocytes # (auto) 1.39 K/uL (1.2-3.4); Mean Corpuscular Hgb Conc 32.9 g/dL (32-36); Mean Platelet Volume 9.6 fL (7.4-10.4); Monocytes # (auto) 1.76 K/uL (0.11-0.59); Monocytes % (auto) 10.1 %; Neutrophils # (auto) 14.05 K/uL (1.4-6.5); Neutrophils % (auto) 81.1 %; Platelet Count 256 K/uL (130-400); RDW Coefficient of Variation 13.5 % (11.5-14.5); RDW Standard Deviation 46.8 fL (36.4-46.3); Red Blood Count 4.64 M/uL (4.7-6.1); White Blood Count 17.35 K/uL (4.8-10.8)
[2018-05-01] MEDS: ACETAMINOPHEN 500 MG TAB PO SCH ×3 (06:05→20:47)
[2018-05-01 06:10] LABS: BUN Creatinine Ratio 12.6 (10-20); Calcium 8.4 mg/dl (8.5-10.1); Creatinine Clr Calc Pharmacy 94.3 ml/min; Est GFR (African American) 101.7; Est GFR (Non-African American) 87.8; Potassium 4.2 mmol/L (3.5-5.1)
--- NOTE | 2018-05-01 08:20 | Orthopedic Progress Note ---
Date of Service May 01, 2018 Assessment & Plan (1) Status post replacement of left shoulder joint: POD #2, Left shoulder TSA, Biceps tenodesis, open DCE, SAD PT/ OT D/C planning- Home w OPPT As per medicne Constipation and uncontrolled pain Will monitor pain and BM today and hopefully get him home tomorrow. Subjective POD #2, doing well, denies sob, cp, n/v, states pain is main issues today, is still concerned about not having BM, is in BM regimine. Still using Morphine regularly. Physical Exam 2 Vital Signs (Past 24 Hours): Last Vital Signs Temp 37.3 C 05/01/18 06:16 Pulse 84 05/01/18 06:16 Resp 16 05/01/18 06:16 BP 121/78 05/01/18 06:16 Pulse Ox 94 05/01/18 06:16 Physical Exam: Left shoulder incision c/d/i, no drainage, no erythema. fingers mobile, sling in tact, A&Ox3.
[2018-05-01] MEDS: BUDESONIDE/FORMOTEROL FUMARATE 80/4.5 60 PUFFS/INHALER INH SCH ×2 (08:25→20:47)
[2018-05-01] MEDS: DOCUSATE SODIUM 100 MG CAP PO SCH ×2 (08:31→20:47)
[2018-05-01] MEDS: POLYETHYLENE (MIRALAX) 17 GM PACK PO SCH (08:31)
[2018-05-01] MEDS: PANTOprazole 40 MG TAB PO SCH (08:31)
[2018-05-01] MEDS: LISINOPRIL 10 MG TAB PO SCH (08:31)
[2018-05-01] MEDS: MULTIVITAMIN TAB PO SCH (08:31)
[2018-05-01] MEDS ORDERED: POLYETHYLENE (MIRALAX) 17 GM PACK PO ONE ×2 (13:00→16:15)
--- NOTE | 2018-05-01 16:01 | Family Medicine Progress Note ---
Date of Service May 01, 2018 Assessment & Plan (1) Status post replacement of left shoulder joint: S/p L shoulder joint replacement, 04/29 Continue tylenol 1000mg Q8H, PRN morphine and roxicodone Constipation 2/2 opiate/pain medication use in the setting of L shoulder surgery Given miralax 34g x 1 on 04/30 and 85g today Colace 100mg BID Hypertension: continue lisinopril GERD (gastroesophageal reflux disease): omeprazole continue Asthma: on symbicort for bronchial asthma DVT prophylaxis: early ambulation Diet: regular Code: Full Dispo: pending clinical improvement home with PT/OT (2) DVT prophylaxis: (3) Asthma: Supervising Physician Co-Signing Physician Notes I personally examined the patient and verified all zuniga points of history and exam, discussed case, and agree with decision making with Dr Noonan. Ongoing shoulder pain. He is trying to see how he will do with less pain medicine so he can hopefully go home. He also has not had a bowel movement, although is not all that uncomfortable, he is very anxious about not moving his bowels. Vitals noted, in general he is awake alert appears a bit uncomfortable but otherwise in no distress. HEENT normocephalic atraumatic mucous membranes are moist. Abdomen mildly distended nontender hypoactive but present bowel sounds, no guarding rebound or rigidity Shoulder painongoing pain meds Constipationadditional MiraLAX Otherwise as above Subjective This AM pt reports persistent shoulder pain. Pt reports needing morphine in addituion to roxicodone for break through pain relief especially after PT sessions and to fall asleep. Continues to feel bloated and has abdominal cramps as he has not had a BM yet. Otherwise denied any f/c, NICHOLAS/dizziness, sob, cp, n/v , dysuria. Physical Exam 2 Vital Signs (Past 24 Hours): Last Vital Signs Temp 37.5 C 05/01/18 15:43 Pulse 89 05/01/18 15:43 Resp 16 05/01/18 15:43 BP 128/81 05/01/18 15:43 Pulse Ox 95 05/01/18 15:43 Physical Exam: General: pleasant, cooperative, in NAD Neuro: alert and oriented x 4 CV: RRR, no m/r/g Pulm: CTAB, equal breath sounds bilaterally Abdomen: +BS, NTTP in all quadrants, mildly distended Extremities: L shoulder dressing C/D/I, warm to touch proximally and distally, good radial pulse, able to move fingers, intact sensation; no LE pitting edema, no calf tenderness to palpation Results & Data Laboratory Results Abnormal lab results 05/01/18 05/01/18 Range/Units 05:40 05:40 WBC 17.35 H (4.8-10.8) K/uL RBC 4.64 L (4.7-6.1) M/uL RDW Std Deviation 46.8 H (36.4-46.3) fL Immature Gran # (Auto) 0.06 H (0.00-0.02) K/uL Neut # (Auto) 14.05 H (1.4-6.5) K/uL Archer # (Auto) 1.76 H (0.11-0.59) K/uL Sodium 135 L (136-145) mmol/L Glucose 108 H (70-99) mg/dl Calcium 8.4 L (8.5-10.1) mg/dl Medications Administered Current Inpatient Medications Acetaminophen (Tylenol) 1,000 mg PO Q8H MARTIN Stop: 05/29/18 21:59 Last Admin: 05/01/18 14:18 Dose: 1,000 mg Albuterol (Ventolin 0.083% 2.5mg/3ml) 2.5 mg INH QID PRN PRN Reason: cough and bronchitis Stop: 05/29/18 15:53 Last Admin: 04/29/18 21:34 Dose: 2.5 mg Bisacodyl (Dulcolax) 10 mg NE DAILY PRN PRN Reason: Constipation Stop: 05/29/18 15:53 Budesonide/Formoterol Fumarate (Symbicort 80mcg/4.5mcg) 2 puffs INH BID MARTIN Stop: 05/29/18 20:59 Last Admin: 05/01/18 08:25 Dose: 2 puffs Diclofenac Sodium (Voltaren 1% Top) 1 appln EXT QID PRN PRN Reason: Pain Stop: 05/29/18 15:53 Diphenhydramine HCl (Benadryl) 25 mg PO Q8H PRN PRN Reason: pruritis Stop: 05/29/18 15:53 Docusate Sodium (Colace) 100 mg PO BID MARTIN Stop: 05/29/18 20:59 Last Admin: 05/01/18 08:31 Dose: 100 mg Lisinopril (Zestril) 10 mg PO QAM MARTIN Stop: 05/29/18 16:44 Last Admin: 05/01/18 08:31 Dose: 10 mg Magnesium Hydroxide (Milk Of Magnesia) 30 ml PO Q6H PRN PRN Reason: Constipation Stop: 05/29/18 15:53 Last Admin: 04/30/18 07:34 Dose: 30 ml Morphine Sulfate (Morphine Sulfate) 2 - 4 mg IV Q3H PRN PRN Reason: Pain Stop: 05/13/18 15:53 Last Admin: 05/01/18 08:22 Dose: 2 mg Multivitamins (Multivitamin Tab) 1 tab PO QAM MARTIN Stop: 05/30/18 08:59 Last Admin: 05/01/18 08:31 Dose: 1 tab Naloxone HCl (Narcan) 0.1 mg IV Q2M PRN PRN Reason: opiate reversal Stop: 05/29/18 15:53 Ondansetron HCl (Zofran) 4 mg IV Q6H PRN PRN Reason: Nausea And Vomiting Stop: 05/29/18 15:53 Oxycodone HCl (Roxicodone Immediate Rel) 5 - 10 mg PO Q4H PRN PRN Reason: Pain Stop: 05/13/18 15:53 Last Admin: 05/01/18 14:17 Dose: 10 mg Pantoprazole Sodium (Protonix) 40 mg PO QAM MARTIN Stop: 05/30/18 08:59 Last Admin: 05/01/18 08:31 Dose: 40 mg Polyethylene Glycol (Miralax Powder Packet) 17 gm PO DAILY MARTIN Stop: 05/31/18 08:59 Last Admin: 05/01/18 08:31 Dose: 17 gm Polyethylene Glycol (Miralax Powder Packet) 17 gm PO NOW ONE Stop: 05/01/18 16:16 Zolpidem Tartrate (Ambien) 5 mg PO HS PRN PRN Reason: Sleep Stop: 05/29/18 15:53 Resident Activity Tracking Resident Involvement: Resident Care Provided Care Provided: Adult [facility] Medicine
[2018-05-02] MEDS: OXYCODONE HCL IR 5 MG TAB (IMMEDIATE RELEASE) PO PRN ×3 (01:36→10:28)
[2018-05-02] MEDS: ACETAMINOPHEN 500 MG TAB PO SCH (06:13)
[2018-05-02] MEDS: DOCUSATE SODIUM 100 MG CAP PO SCH (08:55)
[2018-05-02] MEDS: POLYETHYLENE (MIRALAX) 17 GM PACK PO SCH (08:55)
[2018-05-02] MEDS: MULTIVITAMIN TAB PO SCH (08:56)
[2018-05-02] MEDS: PANTOprazole 40 MG TAB PO SCH (08:56)
[2018-05-02] MEDS: LISINOPRIL 10 MG TAB PO SCH (08:56)
[2018-05-02] MEDS: BUDESONIDE/FORMOTEROL FUMARATE 80/4.5 60 PUFFS/INHALER INH SCH (08:56)
--- NOTE | 2018-05-02 09:41 | Orthopedic Progress Note ---
Date of Service May 02, 2018 Assessment & Plan (1) Status post replacement of left shoulder joint: POD #3, Left shoulder TSA, Biceps tenodesis, open DCE, SAD PT/ OT D/C planning- Home w OPPT today As per medicne Constipation and uncontrolled pain improved today. Subjective Review of Systems pain well controlled today. had BM feels better. No N/V, dizziness. Physical Exam 2 Vital Signs (Past 24 Hours): Last Vital Signs Temp 37 C 05/02/18 06:44 Pulse 74 05/02/18 06:44 Resp 19 05/02/18 06:44 BP 123/79 05/02/18 06:44 Pulse Ox 94 05/02/18 06:44 Physical Exam: Left shoulder incision c/d/i, no drainage, no erythema. fingers mobile, sling in tact, A&Ox3 calves soft nontender
--- NOTE | 2018-05-02 12:58 | Family Medicine Progress Note ---
Date of Service May 02, 2018 Assessment & Plan (1) Status post replacement of left shoulder joint: Pt is clear for discharge from medical stand point. Thank you for the consult. S/p L shoulder joint replacement, 04/29 Continue tylenol 1000mg Q8H, PRN morphine and roxicodone Constipation 2/2 opiate/pain medication use in the setting of L shoulder surgery - RESOLVED Given miralax 34g x 1 on 04/30 and 85g today Colace 100mg BID Recommend discharging with bowel regimen while on opiates for pain relief Hypertension: continue lisinopril GERD (gastroesophageal reflux disease): omeprazole continue Asthma: on symbicort DVT prophylaxis: early ambulation Diet: regular Code: Full Dispo: medically clear for discharge (2) DVT prophylaxis: (3) Asthma: Supervising Physician Co-Signing Physician Notes Case discussed with Dr. Noonan, patient was discharged by orthopedics before it a chance to see him, however he had a bowel movement and appeared totally stable for home on chart review and in discussion with resident. Otherwise as above Subjective This AM pt reports improving shoulder pain. Pt had multiple BMs and is no longer constipated. Otherwise denied any f/c, NICHOLAS/dizziness, sob, cp, n/v, dysuria. Physical Exam 2 Vital Signs (Past 24 Hours): Last Vital Signs Temp 37 C 05/02/18 11:16 Pulse 74 05/02/18 11:16 Resp 19 05/02/18 11:16 BP 123/79 05/02/18 11:16 Pulse Ox 94 05/02/18 11:16 Physical Exam: General: pleasant, cooperative, in NAD Neuro: alert and oriented x 4 CV: RRR, no m/r/g Pulm: CTAB, equal breath sounds bilaterally Abdomen: +BS, NTTP in all quadrants, non-distended Extremities: L shoulder dressing C/D/I, warm to touch proximally and distally, good radial pulse, able to move fingers, intact sensation; no LE pitting edema, no calf tenderness to palpation Resident Activity Tracking Resident Involvement: Resident Care Provided Care Provided: Adult Hospital Medicine
--- NOTE | 2018-05-17 19:42 | Discharge Summary ---
HISTORY OF PRESENT ILLNESS: This is a 62-year-old male patient of Dr. Campos's complaining of chronic left shoulder pain, longstanding, progressively getting worse. The patient has failed conservative treatment and has elected to proceed with a left total shoulder arthroplasty. PAST MEDICAL HISTORY: Hypertension and acid reflux. POSTOPERATIVE COURSE: The patient underwent a left total shoulder arthroplasty, distal clavicle excision, subacromial decompression and biceps tenodesis. Postoperatively, he was followed by medical consultation, pain control and physical therapy. He did have constipation and lack of bowel movement. He was given the usual gastrointestinal cocktail and by postoperative day #3, he had had a bowel movement with no abdominal complaints. The patient was discharged home on postoperative day #3. PHYSICAL EXAMINATION ON DISCHARGE: EXTREMITIES: Left shoulder incision was clean, dry and intact. Yamileth were intact. Skin edges were approximated well. There was no redness or drainage. His elbow, wrist, hand and fingers had full motion. His sling was intact. Neurologically and neurovascularly, he was intact in his left upper extremity. DIAGNOSES: Status post left total shoulder arthroplasty, distal clavicle excision, subacromial decompression and biceps tenodesis. He also has a history of hypertension and acid reflux. PLAN: The patient was discharged home with outpatient physical therapy. He will continue his preadmission medications with the addition of pain medications. He will take stool softeners as needed and follow up with his family physician as needed. We will follow up with Dr. Campos as an outpatient.
== END 2018-05-02 11:51 | disposition home or self-care (01) | DRG 483 ==
LOC: ASU 08:07 → 3E 14:32